=== PATIENT | female | born 1995 | race African-American/Black ===

== ENCOUNTER 2022-11-11 00:25 | Emergency (ER) | payer OTHER ==
[~2022-11-11] VITALS: Ht 167.6 cm; Wt 108.9 kg
[2022-11-11 00:58] VITALS: BP 126/75; TEMP 97.8; O2SAT 98
[2022-11-11] MEDS ORDERED: IBUPROFEN 400 MG TABLET ONE (01:27)
[2022-11-11] MEDS ORDERED: ACETAMINOPHEN ES 500 MG TABLET ONE (01:27)
[2022-11-11] MEDS ORDERED: ACETAMINOPHEN ES 500 MG TABLET PO ONE (01:30)
[2022-11-11] MEDS ORDERED: IBUPROFEN 400 MG TABLET PO ONE (01:30)
[2022-11-11] MEDS ORDERED: KETO10TA2 PO (03:15)
== END 2022-11-11 03:18 | disposition left against medical advice (07) ==
LOC: ER 00:28
DX: M25.561 Pain in right knee (principal)
CPT/HCPCS: 73564-TC